=== PATIENT | male | born 1955 | race Caucasian/White ===

== ENCOUNTER 2024-11-27 06:45 | Observation (INO) ==
--- NOTE | 2024-11-12 12:59 | PAT Medication Instructions ---
Medication Instructions Date of Service November 12, 2024 Home Medications amlodipine 5 mg tablet 5 mg PO HS apixaban 5 mg tablet (Eliquis) 5 mg PO BID carvedilol 25 mg tablet 25 mg PO BID empagliflozin 10 mg tablet (Jardiance) 10 mg PO QAM lisinopril 40 mg tablet 40 mg PO QAM omeprazole 20 mg tablet,delayed release 20 mg PO QAM rosuvastatin 10 mg tablet 10 mg PO HS tadalafil 5 mg tablet 5 mg PO QAM trazodone 150 mg tablet 150 mg PO HS PRN zolpidem 10 mg tablet 10 mg PO HS PRN STOP 3 days before surgery empagliflozin 10 mg tablet (Jardiance) 10 mg PO QAM ASK your prescriber and surgeon apixaban 5 mg tablet (Eliquis) 5 mg PO BID(in order for spinal or epidural anesthesia, Eliquis needs to be stopped 72 hours/3 days before surgery. Please check if okay with doctor that prescribes this to you) DO NOT take the morning of surgery lisinopril 40 mg tablet 40 mg PO QAM Take morning of surgery With a small sip of water, OTHERWISE NOTHING TO EAT OR DRINK AFTER MIDNIGHT: carvedilol 25 mg tablet 25 mg PO BID omeprazole 20 mg tablet,delayed release 20 mg PO QAM tadalafil 5 mg tablet 5 mg PO QAM Take evening before surgery amlodipine 5 mg tablet 5 mg PO HS carvedilol 25 mg tablet 25 mg PO BID rosuvastatin 10 mg tablet 10 mg PO HS trazodone 150 mg tablet 150 mg PO HS PRN(if needed) zolpidem 10 mg tablet 10 mg PO HS PRN(if needed) Other Notes If you have any questions please call us at [phone] or [phone] or [phone] or [phone]
--- NOTE | 2024-11-17 09:05 | Anesthesiology Consultation ---
Date of Service November 17, 2024 Assessment & Plan (1) Encounter for pre-operative examination: Plan - PCP clearance 10/15/24, Dr. Bruce Ha, and [place] cardiology clearance 11/21/24. PAT testing to be faxed to PCP. - cardiology office visit 12/25/23: "...persistent atrial fibrillation...EPS with pulmonary venous antral isolation and left atrial ablation...01/11/22...apixaban...PVC...palpitations...have ordered a two-week Zio XT monitor for further evaluation..." Chart Review Chart Review: Pending: Refer to Additional Notes / Consult section and Patient seen in Pre Admission Testing Teaching & Discussion Pre-Anesthesia Teaching/Discussion Notes: Instructed NPO after midnight before surgery, except medications with 15 cc of water. Medication instructions provided according to the PAT guidelines. History Surgery Operation Date: 11/24/24 07:00 Proposed Procedures p Left Knee Arthroscopy, Medial Meniscus Root Repair(Left) - Ramon Park MD Operation Date: 11/27/24 08:50 Proposed Procedures p Left Total Knee Arthroplasty - Ramon Park MD Height/Weight Height: 6 ft 2 in Weight: 110.4 kg Allergies Allergy/AdvReac Type Severity Reaction Status Date / Time No Known Allergies Allergy Verified 11/12/24 07:31 Medications Home Medications Medication Instructions Recorded Confirmed Last Taken amlodipine 5 mg tablet 5 mg PO HS 11/12/24 11/12/24 Unknown apixaban 5 mg tablet (Eliquis) 5 mg PO BID 11/12/24 11/12/24 Unknown carvedilol 25 mg tablet 25 mg PO BID 11/12/24 11/12/24 Unknown empagliflozin 10 mg tablet 10 mg PO QAM 11/12/24 11/12/24 Unknown (Jardiance) lisinopril 40 mg tablet 40 mg PO QAM 11/12/24 11/12/24 Unknown omeprazole 20 mg tablet,delayed 20 mg PO QAM 11/12/24 11/12/24 Unknown release rosuvastatin 10 mg tablet 10 mg PO HS 11/12/24 11/12/24 Unknown tadalafil 5 mg tablet 5 mg PO QAM 11/12/24 11/12/24 Unknown trazodone 150 mg tablet 150 mg PO HS PRN Sleep 11/12/24 11/12/24 Unknown zolpidem 10 mg tablet 10 mg PO HS PRN Sleep 11/12/24 11/12/24 Unknown Additional Notes: Case discussed with Dr. Morales regarding tadalafil for BPH. He advised that if patient is comfortable holding tadalafil morning of surgery that is recommendation. I discussed this with patient and he expresses comfort with holding tadalafil morning of surgery. He confirmed that it is not taken for pulmonary hypertension. This was updated on provided medication instruction list, patient verbalized understanding and agreement-denied questions or concerns. Past Medical History Medical History (Updated 11/17/24 @ 12:04 by Claritza Rodriguez PA-C) Atrial fibrillation currently on eliquis; f/u PCP Diabetes mellitus NIDDM GERD (gastroesophageal reflux disease) controlled, stable per pt History of cardioversion 12/2021 and 01/2022, [facility] in [place], [place] Hyperlipidemia Hypertension controlled, stable per pt Patient denies h/o stroke, seizures, heart attack, heart failure, blood clots/DVTs or blood transfusions. Exercise / Class Metabolic Activity II 4-5 Yardwork/Stairs/Walk up hill (denies chest discomfort or shortness of breath with one flight of stairs) Past Surgical History Surgical History History of cardiac ablation for atrial fibrillation 02/2022, [facility] in [place], [place] History of esophagogastroduodenoscopy (EGD) Hx laparoscopic cholecystectomy 2022 Hx of bilateral cataract extraction 10/2021 Hx of cardiac cath ~2007, atypical chest pain, [facility], no stents Hx of colonoscopy 2021 Hx of shoulder surgery rt, 1998 Hx of spinal surgery L4-5, L5-S1 fusion 06/2017 Revision 01/2018 for discitis anterior posterior spinal fusion, L2-3, L3-4, revision L4-5, L5-S1, 02/2023 Hx of umbilical hernia repair 3 months old Past Anesthesia History No Family Hx of Anesthesia Complications and Other (required straight cath for post-op urinary retention after one of his lumbar surgeries) History of PONV No Hx of PONV and No Hx of Motion Sickness Social History Smoking Status: Former smoker Do You Dip or Chew Tobacco: No Smoking End Date: years ago Hx Alcohol Use: Yes alcohol intake frequency: a few times a week Hx Substance Use: No substance use type: does not use Review of Systems Patient denies chest pain, shortness of breath, dyspnea on exertion, snoring, witnessed apneas, fever, chills, cough, wheezing, or palpitations. Physical Exam Vital Signs Vitals BP 169/70 P 64 TEMP 98.3 SP02 96% on RA RESP 18 Physical Patient resting comfortably in chair in no acute distress, alert and oriented, responding appropriately throughout visit Full cervical extension range of motion without pain TMD 3.5 finger breadths Mallampati Score 3 Dentition: several caps/crowns and implants, denies chipped or loose teeth, or bridges Lungs: normal respiratory effort. Good air movement, clear throughout to auscultation, no adventitious breath sounds Cardiac: regular rate and rhythm, no murmurs noted Carotid arteries: negative bruit bilat Lab Results Anesthesia Preop Results Results Anesthesia Widget: WBC 3.68 K/ul (4.8-10.8) L 10/22/24 Hgb 14.1 g/dl (14.0-18.0) 10/22/24 Hct 42.2 % (42.0-52.0) 10/22/24 Plt 134 K/uL (130-400) 10/22/24 Na 138 mmol/L (136-145) 11/17/24 K 3.9 mmol/L (3.5-5.1) 11/17/24 Cl 106 mmol/L (98-107) 11/17/24 CO2 28 mmol/L (21-32) 11/17/24 BUN 18 mg/dl (6-23) 11/17/24 Creat 1.06 mg/dl (0.6-1.4) 11/17/24 Glucose Level 106 mg/dl (70-99(Fasting)) H 11/17/24 PT 11.4 Seconds (9.0-12.0) 11/17/24 PTT 33 Seconds (21-31) H 11/17/24 INR 1.1 (0.9-1.1) 11/17/24 TSH 1.393 uIu/ml (0.300-4.500) 10/22/24 HA1c 5.4 % (4.5-5.6) 10/22/24 Urine Color Yellow 11/17/24 Urine Appearance Clear (Clear) 11/17/24 Urine pH 5.5 (4.5-7.5) 11/17/24 Urine Specific [place] 1.042 (1.000-1.030) H 11/17/24 Urine Protein Trace (Negative) H 11/17/24 Urine Glucose (UA) 3+ (Negative) H 11/17/24 Urine Ketones Negative (Negative) 11/17/24 Urine Blood Negative (Negative) 11/17/24 Urine Nitrite Negative (Negative) 11/17/24 Urine Bilirubin Negative (Negative) 11/17/24 Urine Urobilinogen Negative (Negative) 11/17/24 Urine Leukocyte Esterase Negative (Negative) 11/17/24 Urine WBC (Auto) 0-5 /hpf (0-5) 11/17/24 Urine RBC (Auto) 0-2 /hpf (0-2) 11/17/24 Urine Hyaline Casts (Auto) 0-2 /lpf (0-2) 11/17/24 Urine Epithelial Cells (Auto) 0-2 /hpf (0-2) 11/17/24 Urine Bacteria (Auto) None Seen (None Seen) 11/17/24 Blood Type A Positive 11/17/24 Antibody Screen NEGATIVE 11/17/24 Testing Electrocardiogram Date: 12/25/23 Sinus rhythm, rate 64 bpm Other Testing Cardiac event monitor report 12/25/23 Min HR 47 bpm, max 190, avg 70 Predominant underlying rhythm was sinus rhythm 1 run of ventricular tachycardia occurred lasting 4 beats with a max rate of 190 bpm 11 supraventricular tachycardia runs occurred, run with the fastest interval lasting 7 beats with a max rate of 179 bpm, the longest lasting 11 beats with an avg rate of 105 bpm Some episodes of supraventricular tachycardia may be possible atrial tachycardia with variable block Rare isolated SVEs, SVE couplets, SVE triplets, VE couplets and VE triplets Occasional isolated VEs Ventricular bigeminy and trigeminy were present
[~2024-11-27 06:45] MED LIST: BUPIVACAINE 0.25% PF 30 ML VIAL ONE; BUPIVACAINE 0.5 % 5 MG/1 ML PF 10ML VIAL ONE
[2024-11-27] MEDS ORDERED: LIDOCAINE 2% 2 ML VIAL/AMP(20MG/ML) INFIL ONE (07:24)
[2024-11-27] MEDS ORDERED: PROPOFOL IV EMULSION 10 MG/ML 20 ML VIAL IV ONE (07:24)
[2024-11-27] MEDS ORDERED: ONDANSETRON INJ 2 MG/ML 2 ML VIAL ONE (07:24)
[2024-11-27] MEDS ORDERED: MIDAZOLAM HCL 1 MG/ML 2ML VIAL ONE (07:24)
[2024-11-27] MEDS: ACETAMINOPHEN 500 MG TAB PO SCH ×2 (07:31→14:02)
[2024-11-27] MEDS: traMADol HCL 50 MG TABLET PO SCH (07:32)
[2024-11-27] MEDS: CeleBREX 200 MG CAP PO SCH ×2 (07:32→21:27)
[2024-11-27] MEDS: FAMOTIDINE 20 MG TAB PO SCH (07:32)
[2024-11-27] MEDS: LR 15ML/HR IV SCH ×3 (07:33→13:15)
[2024-11-27] MEDS: Scopolamine 1 MG TDSY TD SCH (07:33)
[2024-11-27] MEDS: dexAMETHasone**PF** 10 MG/ML VIAL IV SCH (07:34)
[2024-11-27] MEDS ORDERED: PROMETHAZINE HCL 6.25 MG in SODIUM CHLORIDE 0.9% 50 ML IV PRN (08:08)
[2024-11-27] MEDS ORDERED: ePHEDrine sulfate 50 MG/ML AMP IV PRN (08:08)
[2024-11-27] MEDS ORDERED: ONDANSETRON INJ 2 MG/ML 2 ML VIAL IV PRN ×2 (08:08→11:19)
[2024-11-27] MEDS ORDERED: ATROPINE SULFATE 0.1 MG/ML 10ML SYR IV PRN (08:08)
[2024-11-27] MEDS ORDERED: fentaNYL citrate PF 100 MCG/2 ML VIAL ONE ×3 (08:23→10:16)
--- NOTE | 2024-11-27 08:30 | History & Physical Bridge Note ---
Date of Service November 27, 2024 History & Physical Bridge Note I have examined the patient, reviewed the History & Physical and in the interval since the performance of the History & Physical I have noted the following changes of clinical significance: no changes noted
[2024-11-27] MEDS: TRANEXAMIC ACID 1,000 MG **IV Pre-op IV SCH (08:48)
[2024-11-27] MEDS: ceFAZolin 2000MG 2,000 MG/15 ML SYR IV SCH ×3 (09:06→17:37)
[2024-11-27] MEDS ORDERED: KETAMINE HCL 10MG/ML SYR ONE (09:20)
[2024-11-27] MEDS: ROPIV 0.5% 246mg, Ketorolac 30mg, EPINEPHrine 0.5mg in NSS INFIL SCH (09:53)
[2024-11-27] MEDS: ORTHO JOINT ANESTHETIC ONE (09:53)
[2024-11-27] MEDS: TRANEXAMIC ACID 1,000 MG **IV Intra-op IV SCH (10:24)
[2024-11-27] MEDS ORDERED: HYDROmorphone INJ 2 MG/ML SYR/VIAL ONE (11:09)
--- NOTE | 2024-11-27 11:18 | Operative Report ---
Post Operative Report Pre & Post Diagnosis Operation Date: 11/27/24 08:50 Pre-Op Diagnosis: Left Knee Medial Meniscus Tear, Osteoarthritis Post-Op Diagnosis: Left Knee Medial Meniscus Tear, Osteoarthritis I identified the patient and participated in the time-out.: Yes Procedure Operation Date: 11/27/24 08:50 Actual Procedures p Left Total Knee Arthroplasty(Left) - Ramon Park MD Surgeon Ramon Park MD [facility] Nurse KONRAD Butts PA-C. No resident or fellow was available to assist. Estimated Blood Loss 50 Findings Consistent with Post-Op Diagnosis Specimens Left knee bone and soft tissue contents Anesthesia Type General Regional Complications none Disposition Disposition: Recovery Room Indications 69-year-old male with left knee pain refractory to conservative management. This includes activity modification, nonsteroidal anti-inflammatory medications, intra-articular corticosteroid injection, and others. Physical exam is notable for medial joint line tenderness and a positive Melita's test. X-rays were ob tained demonstrating osteoarthritis. MRI was obtained which demonstrated a medial meniscus root tear as well as the aforementioned osteoarthritis. I had a long discussion with him about his diagnoses and treatment options. He has a history of prior back surgery with balance issues, and so while we did talk about a medial meniscus root repair as an option he did not feel that he could maintain the postoperative weightbearing restrictions. Therefore, total knee arthroplasty was the best surgical option for him. After reviewing all the risks and benefits of surgery, alternatives, and expected outcomes he elected to proceed. All questions were answered. Informed consent was signed. Description of Procedure Patient was identified in the preoperative holding area where the surgical site, left knee, was marked. Adductor canal block was placed by anesthesia. Patient was brought back to the operating room, moved on the operating room table, and general anesthesia was administered. A bump was placed underneath the ipsilateral hip. All bony prominences were padded. Perioperative antibiotics and tranexamic acid were administered. Exam under anesthesia was performed. This demonstrated range of motion arc from 5 degrees to 125 degrees stable to varus and valgus stress testing at 30 degrees. The surgical site was prepped and draped in the normal sterile fashion. Prior to incision a multidisciplinary timeout was called. All in the room were in agreement. I began by exsanguinating the limb with an Esmarch bandage. Tourniquet was inflated to 250 mmHg. Total tourniquet time for the case was 60 minutes. A 14 cm long incision was made over the anterior aspect of the knee. I dissected through the subcutaneous tissues to the level of the fascia. Full-thickness flaps were raised above the fascia. A median parapatellar arthrotomy was made. The fat pad was excised. A medial release was performed with Bovie electrocaut evelyn on the proximal tibia. Synovitis in the suprapatellar pouch was removed also with electrocautery. The patella was then everted and held with 2 towel clips. The thickness of the patella was measured at 26 mm. Patellar resection was performed with a saw. Caliper showed the patella thickness now to be 15 mm. A size 41 mm oval trial was placed and had a great fit. The 3 drill holes were placed then the trial button was placed. The patellar thickness was now 26 mm which I was very happy with. The patellar trial was then removed, and the knee was flexed up. Retractors were placed to protect the MCL and LCL. The ACL and PCL were excised. Intramedullary drill guide was drilled into the femur. Distal femoral cutting guide was placed set at 5 degrees of valgus to resect 10 mm off the distal femur. Distal femoral resection was made without difficulty. The tibia was then exposed. The lateral meniscus was sharply excised. The tibial cutting jig was positioned in line with the tibial shaft in the coronal plane and with 3 degrees of posterior slope in the sagittal plane to resect 9 mm off the medial compartment. The jig was then pinned in position and the tibial cut was made. We then brought the knee into full extension. Lamina spreaders were placed. The medial meniscus was excised. The extension block was then placed for 6 mm thickness poly. This gave us full extension and excellent stability to varus and valgus stress. Next the extension block was removed, the knee was flexed up, collateral ligaments were protected, and the epicondylar axis and Whitesides line were marked out on the distal femoral cut. Femoral sizing guide was placed. External rotation was set at 3 degrees so that the posterior cut would be parallel with the epicondylar axis and perpendicular with Whitesides line. The patient sized to a size 7 femur. 2 pins were then placed through the jig into the distal femur. The jig was removed and the appropriately sized 4-in-1 cutting jig was placed over the pins, then fixated to the bone using threaded, headed pins. We confirmed that we would not notch the femur with our anterior cut. Our 4 cuts were then made. The cutting jig was removed. The 6 mm flexion block was then placed with the knee held at 90 degrees. There was excellent stability to varus and valgus at 90 degrees with no gapping medially or laterally. Next the box cutting jig was placed on the distal femur. The box cut was made and the femoral trial was impacted into position and sat down flush nicely on the bone. Lug holes were drilled in the distal femur. We then reexposed the tibia. The tibia was sized to an 8 for a fixed bearing component and pinned in external rotation on the cut tibial surface. The intramedullary drill followed by the keel punch were used to prepare the tibia. The tibial tray with a 6 mm thickness polyethylene liner was placed and the knee was brought through a full range of motion. There was excellent stability to varus valgus stress throughout a full range of motion, which was approximately 0-135 degrees. Next the trial components were removed. I then injected the posterior capsule and periosteum with the periarticular injection cocktail. The bone cuts were then irrigated and dried while the cement was mixed on the back table. The femoral component was cemented on first. Excess cement was removed. A lap sp onge was placed over the femoral component for protection, then the tibia was subluxated anteriorly. The all polyethylene tibial component was then cemented in place. Again excess cement was removed. The knee was brought into full extension and held there until the cement cured. The patella was cemented and clamped. Dilute Betadine solution was then allowed to soak in the knee while the cement cured. Once the cement was fully cured, the knee was irrigated out, the tourniquet was let down and meticulous hemostasis was ensured. The knee was brought through a full range of motion. I was were very happy with the patella tracking and the stability. We then began to close. Interrupted 0 Vicryl suture was used to repair the patellar retinaculum in [id number] fashion. The quadriceps and patellar tendons were run with #1 Vicryl. The deep dermal layer was closed with interrupted 2-0 Vicryl. Dermabond and Zipline was used for the skin, followed by a Silverlon dressing. A compressive Jose wrap was placed and the knee was placed into a knee immobilizer. Patient's sedation was lifted and was transferred to recovery room in stable condition. Summary of implants: Depuy Attune Posterior Stabilized Cemented Femur, size 7 left Attune All-polyethylene tibial component, posterior stabilized 6 mm thickness, size 8 Attune patella medialized dome, size 41 2 batches of Palacos high viscosity bone cement Postoperative course: Patient will be admitted to the floor for pain control and monitoring. Weightbearing as tolerated with a walker with no knee range of motion for 48 hours. Resume Eliquis tomorrow for DVT prophylaxis. I attest to the content of the Intraoperative Record and any orders documented therein. Any exceptions are noted below.
[2024-11-27] MEDS ORDERED: MAGNESIUM HYDROXIDE SUSP 30 ML UDC PO PRN (11:19)
[2024-11-27] MEDS ORDERED: oxyCODONE HCL IR 5 MG TAB (IMMEDIATE RELEASE) PO PRN (11:19)
[2024-11-27] MEDS ORDERED: METOCLOPRAMIDE HCL INJ 5 MG/ML 2 ML VIAL IV PRN (11:19)
[2024-11-27] MEDS ORDERED: diphenhydrAMINE 50 MG/ML VIAL IV PRN (11:19)
[2024-11-27] MEDS ORDERED: HYDROmorphone INJ 1 MG/ML SYRINGE IV PRN (11:19)
[2024-11-27] MEDS ORDERED: ALUMINUM/MAGNESIUM SUSP 30 ML UDC PO PRN (11:19)
[2024-11-27] MEDS ORDERED: bisacodyL 10 MG SUPP PR PRN (11:19)
[2024-11-27] MEDS ORDERED: NALOXONE HCL 0.4 MG/1 ML VIAL/CARP IV PRN (11:19)
--- NOTE | 2024-11-27 11:19 | Operative Report ---
Post Operative Report Pre & Post Diagnosis Operation Date: 11/27/24 08:50 Pre-Op Diagnosis: Left Knee Medial Meniscus Tear Post-Op Diagnosis: Left Knee Medial Meniscus Tear I identified the patient and participated in the time-out.: Yes Procedure Operation Date: 11/27/24 08:50 Actual Procedures p Left Total Knee Arthroplasty(Left) - Ramon Park MD Surgeon Ramon Park MD Mortgage Clerk Jabier Butts PARex Estimated Blood Loss 50 Findings Consistent with Post-Op Diagnosis Specimens left knee bone and soft tissue Description of Procedure I was present during the entire case assisting with positioning, prepping, draping, wound retraction, wound closure, dressing and immobilizer placement. No fellow present. Please see Dr. Park procedure note for specifics of the case. I attest to the content of the Intraoperative Record and any orders documented therein. Any exceptions are noted below.
[2024-11-27] MEDS ORDERED: traZODone HCL 50 MG TAB PO PRN (11:22)
[2024-11-27] MEDS ORDERED: ZOLPIDEM TARTRATE 5 MG TAB PO PRN (11:26)
[2024-11-27] MEDS: fentaNYL citrate PF 100 MCG/2 ML VIAL IV PRN (11:32)
--- NOTE | 2024-11-27 11:44 | XRay Report ---
XR knee LT 1 or 2V routine CLINICAL HISTORY: Surgical Post Op COMPARISON: None pertinent FINDINGS: 2 postoperative views of the left knee demonstrate findings of a total knee replacement wi th satisfactory positioning and alignment of the prosthetic components. Postoperative changes are not ed in the soft tissues. IMPRESSION: As above ACT 112: Negative or not required by law. Electronically signed by: Jazmine Young M.D. 11/27/2024 11:43 AM
[2024-11-27] MEDS: HYDROmorphone INJ 2 MG/ML SYR/VIAL ONE (12:03)
[2024-11-27] MEDS ORDERED: HYDROmorphone INJ 0.5 MG/0.5 ML SYR IV PRN (12:05)
[2024-11-27] MEDS: KETOROLAC TROMETHAMINE 15 MG/ML VIAL IV SCH (12:37)
[2024-11-27] MEDS: LR 60ML/HR IV SCH (13:15)
[2024-11-27] MEDS: KETOROLAC 30 MG/ML VIAL ONE (13:17)
--- NOTE | 2024-11-27 13:57 | Anesthesiology Progress Note ---
Date of Service November 27, 2024 Anesthesia Post Procedure Vital Signs Vital Signs: Temp Pulse Pulse Resp BP BP Pulse Ox 11/27/24 13:27 36.5 C 74 17 159/86 H 96 11/27/24 13:00 36.5 C 71 16 142/78 H 99 11/27/24 12:40 65 12 135/80 98 11/27/24 12:30 70 18 142/78 H 97 11/27/24 12:20 36.6 C 74 12 141/82 H 98 11/27/24 12:10 68 12 133/88 96 11/27/24 12:00 68 14 147/87 H 97 11/27/24 11:50 65 16 150/77 H 97 11/27/24 11:40 63 12 151/84 H 94 11/27/24 11:30 70 14 161/87 H 98 11/27/24 11:18 36.1 C L 68 12 165/97 H 98 11/27/24 07:10 36.8 C 67 20 153/91 H 97 O2 Del Method O2 Flow Rate 11/27/24 13:27 Nasal Cannula 2 11/27/24 13:00 Nasal Cannula 2 11/27/24 12:40 Nasal Cannula 2 11/27/24 12:30 Nasal Cannula 2 11/27/24 12:20 Nasal Cannula 2 11/27/24 12:10 Nasal Cannula 2 11/27/24 12:00 Nasal Cannula 2 11/27/24 11:50 Nasal Cannula 2 11/27/24 11:40 Oxymask 3 11/27/24 11:30 Oxymask 3 11/27/24 11:18 Oxymask 6 11/27/24 07:10 Room Air Pain Intensity Left Knee: Pain Intensity: 6 Transfer of Care Handoff Completed per policy Notes Mental Status: alert / awake / arousable and participated in evaluation Patient Amnestic to Procedure: Yes Nausea / Vomiting: adequately controlled Pain: adequately controlled Airway Patency, RR, SpO2: stable & adequate BP & HR: stable & adequate Hydration State: stable & adequate Anesthetic Complications: no major complications apparent and Pt Satisfied with anesthetic care
[2024-11-27] MEDS: HYDROCODONE/ACETAMOPHEN 5/325MG TAB PO PRN (14:03)
[2024-11-27] MEDS: Scopolamine CHECK PATCH PLACEMENT SCH (16:19)
[2024-11-27] MEDS: DOCUSATE SODIUM 100 MG CAP PO SCH (21:26)
[2024-11-27] MEDS: traMADol HCL 50 MG TABLET PO PRN (21:26)
[2024-11-27] MEDS: SENNA 8.6 MG TAB PO SCH (21:26)
[2024-11-27] MEDS: amLODIPine BESYLATE 5 MG TAB PO SCH (21:27)
[2024-11-27] MEDS: ROSUVASTATIN CALCIUM 10 MG TAB PO SCH (21:27)
[2024-11-27] MEDS: carvediloL 25 MG TAB PO SCH (21:27)
[2024-11-28] MEDS: TAMSULOSIN HCL 0.4 MG CAP PO PRN (06:05)
[2024-11-28 07:10] VITALS: O2SAT 97
[2024-11-28 07:53] VITALS: BP 122/70; PULSE 65; RESP 14; TEMP 97.7
[2024-11-28 08:39] LABS: Hematocrit (blood only) 32.7 % (42.0-52.0); Hemoglobin 11.4 g/dl (14.0-18.0); Mean Corpuscular Hgb Conc 34.9 g/dL (32.0-36.0); Mean Corpuscular Volume 88.9 fL (80.0-100.0); Mean Platelet Volume 9.3 fL (9.4-12.4); Platelet Count 135 K/uL (130-400); RDW Coefficient of Variation 12.7 % (11.5-14.5); RDW Standard Deviation 41.2 fL (36.4-46.3); Red Blood Count 3.68 M/uL (4.70-6.10); White Blood Count 8.12 K/ul (4.8-10.8)
[2024-11-28 08:54] LABS: BUN Creatinine Ratio 21.9 (10-20); Calcium 8.6 mg/dl (8.6-10.3); Creatinine Clr Calc Pharmacy 72.1 ml/min; Potassium 3.7 mmol/L (3.5-5.1)
[2024-11-28] MEDS ORDERED: EMPAGLIFLOZIN 10 MG TAB PO SCH (09:00)
[2024-11-28] MEDS: dexAMETHasone 4 MG TAB PO SCH (09:09)
[2024-11-28] MEDS: APIXABAN 5 MG TABLET PO SCH (09:09)
[2024-11-28] MEDS: lisinopril 40 MG TAB PO SCH (09:10)
[2024-11-28] MEDS: MULTIVITAMIN TAB PO SCH (09:10)
[2024-11-28] MEDS: PANTOprazole 40 MG TAB PO SCH (09:10)
--- NOTE | 2024-11-28 10:22 | Orthopedic Progress Note ---
Date of Service November 28, 2024 Assessment & Plan (1) S/P total knee arthroplasty: Plan: PT/OT Weightbearing as tolerated with walker assistance Immobilizer use for first 48 hours postop Ice with easy wrap Pain controlled p.o. meds DVT prophylaxis with SAHARA stockings and Eliquis Plan is to discharge home today with in-home physical therapy for first 2 weeks postop Keep Silverlon dressing in place Follow-up at [facility] [address] orthopedics as previously scheduled With questions contact our clinic at [phone] Admission and Anticipated Discharge Date Admission Date: November 27, 2024 Subjective This 69-year-old male is day 1 status post left total knee arthroplasty. States he is doing fairly well. He states his pain is well-controlled with oral hydrocodone. He is very anxious to be discharged home today. He states that he is scheduled to do in-home physical therapy for the first 2 weeks postoperatively. Currently he denies chest pain, shortness of breath, fever, chills, sweats, nausea, vomiting, diarrhea or difficulty voiding. He has no complaint of numbness or tingling in his left lower extremity. Review of Systems Review of Systems: All systems reviewed & are unremarkable except as noted in Subjective Physical Exam Physical Exam: Left lower extremity: Silverlon is clean dry and intact and left in place. Patient is able to extend knee to terminal extension and flex to 70 degrees without significant discomfort. He is able to actively dorsi and plantarflex foot and perform an active straight leg raise test. His quad strength is 4+ out of 5. He is neurovascularly intact in the left lower extremity. Results & Data Vital Signs (Past 12 Hours) Vital Signs Temp Pulse Pulse Resp BP Pulse Ox O2 Del Method 11/28/24 07:51 36.5 C 65 14 122/70 97 Room Air 11/28/24 07:07 36.7 C 68 16 123/74 97 Room Air 11/28/24 03:21 36.6 C 77 12 124/75 95 Room Air Diagnostic Findings Laboratory Results WBC 8.12 K/ul (4.8-10.8) 11/28/24 08:10 RBC 3.68 M/uL (4.70-6.10) L 11/28/24 08:10 Hgb 11.4 g/dl (14.0-18.0) L 11/28/24 08:10 Hct 32.7 % (42.0-52.0) L 11/28/24 08:10 MCV 88.9 fL (80.0-100.0) 11/28/24 08:10 MCH 31.0 pg (25.0-34.0) 11/28/24 08:10 MCHC 34.9 g/dL (32.0-36.0) 11/28/24 08:10 RDW Std Deviation 41.2 fL (36.4-46.3) 11/28/24 08:10 RDW Coeff of Anaid 12.7 % (11.5-14.5) 11/28/24 08:10 Plt Count 135 K/uL (130-400) 11/28/24 08:10 MPV 9.3 fL (9.4-12.4) L 11/28/24 08:10 Sodium 134 mmol/L (136-145) L 11/28/24 08:10 Potassium 3.7 mmol/L (3.5-5.1) 11/28/24 08:10 Chloride 102 mmol/L (98-107) 11/28/24 08:10 Carbon Dioxide 26 mmol/L (21-32) 11/28/24 08:10 Anion Gap 6 (3-11) 11/28/24 08:10 BUN 28 mg/dl (6-23) H 11/28/24 08:10 Creatinine 1.28 mg/dl (0.6-1.4) 11/28/24 08:10 Est Cr Clr Drug Dosing 72.1 ml/min 11/28/24 08:10 eGFR 60.96 11/28/24 08:10 BUN/Creatinine Ratio 21.9 (10-20) H 11/28/24 08:10 Glucose 130 mg/dl (70-99(Fasting)) H 11/28/24 08:10 POC Glucose 168 mg/dl (70-99) H 11/27/24 20:28 Calcium 8.6 mg/dl (8.6-10.3) 11/28/24 08:10 Impressions Knee X-Ray 11/27/24 11:19 XR knee LT 1 or 2V routine CLINICAL HISTORY: Surgical Post Op COMPARISON: None pertinent FINDINGS: 2 postoperative views of the left knee demonstrate findings of a total knee replacement with satisfactory positioning and alignment of the prosthetic components. Postoperative changes are noted in the soft tissues. IMPRESSION: As above ACT 112: Negative or not required by law. Electronically signed by: Jazmine Young M.D. 11/27/2024 11:43 AM
--- NOTE | 2024-11-28 11:04 | Discharge Summary ---
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 He is scheduled for a left total knee arthroplasty with Dr. Park on 11/27/2024 at [facility]. The patient suffered an acute injury to the left knee about 4 months ago ended up receiving a steroid injection which was not therapeutic. An MRI was obtained demonstrating a root tear of the medial meniscus, bone marrow edema, and moderate chondromalacia. He was initially scheduled for arthroscopic surgery to repair the tear however had reservations about being nonweightbearing for a prolonged period of time secondary to balance problems and weakness in his legs from prior back surgeries. He and Dr. Park reviewed the option for total knee replacement and the patient has decided to proceed with this procedure. Patient reports ongoing pain in the left knee depending on his activity level. Intermittently develops swelling in the knee based on activity. He is taking 600 mg ibuprofen nightly to help him sleep. He saw his primary care provider recently back when he was considering all surgeries who cleared him for a surgical procedure and he is in the process of having the PCP clearance form related to our office. Patient met with preadmissions testing/anesthesia this morning and they reviewed medications to take and hold in the perioperative timeline. He has an appointment scheduled with cardiology on 11/21/2024 for cardiac clearance. He has a shower chair and a raised toilet seat at home. He also has a walker but is unsure if this is a rolling walker. Patient does not have any allergies. He has taken oxycodone and hydrocodone in the past following back surgeries and did much better with Hidalgo as opposed to oxycodone due to GI upset. He is a former smoker. Quit 12 years ago. He does not have any dental appointments scheduled in the near future. Denies any recent illnesses, cough, cold, fever, chills, chest pain, shortness of breath, abdominal pain, nausea, vomiting, diarrhea, urinary symptoms, dental pain, rash or redness to the knee, history of MRSA, allergy to metal, or history of DVT or PE. History of cardiac ablation and 2 lumbar fusion surgeries. Admission Exam Per Admitting Provider Physical Exam Vitals & Measurements BP: 150/100 SpO2: 97% CONSTITUTIONAL: well developed, well nourished. resting comfortably in no distress. pleasant. EARS: tm's without erythema or bulging. canals without erythema or edema. EYES: PERRL. conjunctiva normal MOUTH: oropharynx clear. dentition in good repair. no evidence of dental infection CARDIOVASCULAR: regular rate and rhythm. no murmurs, rubs, or gallops RESPIRATORY: no tachypnea. lungs clear to auscultation bilaterally MUSCULOSKELETAL: Left knee: ROM: 3 to 100 3+ effusion - Lateral joint line tenderness + Medial joint line tenderness Mild lateral facet tenderness Moderate medial facet tenderness NEUROLOGIC: no focal deficits Principal Diagnosis Left knee osteoarthritis Discharge Exam Left lower extremity: Silverlon is clean dry and intact and left in place. Patient is able to extend knee to terminal extension and flex to 70 degrees without significant discomfort. He is able to actively dorsi and plantarflex foot and perform an active straight leg raise test. His quad strength is 4+ out of 5. He is neurovascularly intact in the left lower extremity. Discharge Data Allergies Allergy/AdvReac Type Severity Reaction Status Date / Time No Known Allergies Allergy Verified 11/27/24 07:07 Procedures Performed Operation Date: 11/27/24 08:50 Actual Procedures p Left Total Knee Arthroplasty(Left) - Ramon Park MD Ordered Studies 11/27/24 10:33 US - OR guided needle placemen Routine Hospital Course (1) S/P total knee arthroplasty: Patient had an uneventful overnight stay following a left total knee arthroplasty. States that his pain was effectively controlled with hydrocodone. He states he is scheduled to begin in home physical therapy later this weekend. He is very pleased with the results of his surgery. He is on Eliquis for DVT prophylaxis. PT/OT Weightbearing as tolerated with walker assistance Immobilizer use for first 48 hours postop Ice with easy wrap Pain controlled p.o. meds DVT prophylaxis with SAHARA stockings and Eliquis Plan is to discharge home today with in-home physical therapy for first 2 weeks postop Keep Silverlon dressing in place Follow-up at [facility] as previously scheduled With questions contact our clinic at [phone] Total Time Total Time Spent Total Time Spent (In Minutes): 25 mins Discharge Plan Discharge Items Patient Disposition: Home - Home Health Services Reason For Visit: Left Knee Medial Meniscus Tear Discharge Diagnosis: Left total knee arthroplasty Activity: As commented below Lifting: None Bathing: Keep incision dry Bathing Comment: may shower later today Sexual Activity: Wait until after follow-up appointment Exercise/Sports: Wait until after follow-up appointment Driving/Machine Use: No driving until cleared by engineering specialist technician Weightbearing: Left weightbearing Weightbearing Comment: as tolerated with walker Non-emergency contact: Surgeon Call non-emergency contact if: you have any medication questions, your pain is not controlled, your temperature is above 101.5, your wound has increased drainage and your wound pain has increased Follow-up/Referrals: Bruce Ha DO [Primary Care Provider] - Diet: Regular Addtl Attending Provider Instructions: Post-operative Instructions Dear Patient and Family/Friends, Before you are discharged from the hospital, it is important to know what to expect when you get home after surgery. To that end, we have created this sheet of discharge instructions which covers many commonly asked questions. Make sure you go through this sheet in its entirety with your nurse before you are discharged. Please note that we will go over the specifics of your surgery and recovery when you return for your first post-operative visit. Sincerely, Dr. Park Medications 1. Hidalgo 5/325 mg: Take 1-2 tabs every 4-6 hours as needed for postoperative pain control. A prescription for this medication will be sent to your pharmacy. 2. Diclofenac sodium 75 mg: Take 1 tab twice daily for postoperative pain and inflammation relief. You received this medication at your preoperative visit 3. Eliquis 5 mg: Take your normal regimen for DVT prophylaxis beginning postoperative day 1 Pain Expect to be in a fair amount of pain after surgery. Remember, our goal is not to eliminate your pain, but to make it tolerable. It is a good idea to stay ahead of your pain by taking the medications you were prescribed once you get home. Typically, the pain starts improving 3-7 days after surgery. You should start weaning off the narcotic pain medication (oxycodone, hydrocodone, hydromorphone, morphine) as soon as your pain improves. Please call our office if your pain is not adequately controlled. Ice Ice your operative site at least 5 times a day for 15-30 minutes at a time. Make sure you have a thin cloth between the ice or cooling unit and your skin to prevent greenberg bite. This is especially important if you received a nerve block. Continue icing your operative site for the first 5-7 days after surgery, then as needed. Diet/Nausea/Vomiting Start by drinking clear liquids and eating crackers. If you can tolerate this, then you may resume your normal diet. If you feel nauseated or vomit, take Zofran/ondansetron (if prescribed). Please call our office if you have intractable nausea or vomiting, or, if after hours, you may go to the Emergency Room for help. Constipation Constipation is a common side effect of narcotic pain medication. If you have not had a bowel movement within 2 days after surgery, we recommend purchasing an over the counter laxative such as Milk of Magnesia, Dulcolax, or Miralax from a local pharmacy, and taking it as instructed. Call our clinic if any questions. Slings and Braces If you were placed in a sling or brace, it must be worn at all times, including sleep. You may remove your sling or brace for physical therapy, home exercises, and showering. The length of time you will be in your brace and range of motion restrictions depends on what surgery you had; these details will be reviewed at your first post-operative appointment. Nerve block The anesthesia team sometimes places a nerve block to help with post-operative pain control. This results in significant numbness and inability to move the extremity. The nerve block usually wears off in 8-12 hours, but sometimes can last up to 24 hours. Please call our office if you are still unable to move your extremity after 24 hours, unless you received a pain pump to take home. Nerve blocks typically wear off quickly, so start taking pain medication as soon as you start feeling soreness near your surgical site. Weight bearing and Range of Motion. Do not bear any weight through your operative extremity immediately after surgery. If you had upper extremity surgery, do not lift anything with that arm. If you are in a knee brace, keep it locked in place until your follow-up. We will discuss your weight bearing, range of motion, and lifting restrictions in detail at your first post-operative appointment. Continuous Passive Motion (CPM) Machine If you were prescribed a CPM machine, it will start after your first post- operative appointment, at which time we will give you instructions on the range of motion settings and duration of treatment Physical therapy You will be given a prescription for physical therapy or occupational therapy at your first post-operative appointment. Typically, patients start therapy within 1 week of surgery Wound care and showering We will inspect your wound at your first post-operative visit, and may do a dressing change at that time. Most patients will be in a water-proof dressing that is removed 14 days after surgery. It is normal to see some dried blood on the dressing. Do not remove your dressing, paper strips or sutures yourself unless you are given permission. Showering is allowed the day after surgery. Do not scrub or remove any dressings. The wound should not be submerged underwater (i.e. in a bathtub or pool) until 4 weeks after surgery SAHARA stockings If you were given white stockings, these are to be worn at all times except to shower (on both legs) for the first 2 weeks after surgery. Driving You may not drive while taking narcotic pain medication or while in a cast, splint, sling or brace. You, the patient, need to make the final determination about when you are safe to drive, however, the earliest you may consider driving after surgery is below: Hand/Wrist/Elbow Surgery: 3 days Shoulder Surgery: 2 weeks Hip,/Knee/Ankle Surgery: 4 weeks Fracture repair: 6 weeks Return to Work Your return to work depends on what surgery was done and what type of work you do. Please bring any paperwork your employer needs completed to your first post-operative visit. Also, bring a description of your job duties, as this helps us to understand what risks you may face at work. Travel Avoid long distance travel (greater than 1 hour) in airplanes and cars for the first 6 weeks after surgery. If you must travel, you need to have a Doppler ultrasound done before you travel to rule out a blood clot in your legs. Follow-up You should have a follow-up appointment already scheduled 1-2 days after surgery. If not, please contact our office to make this appointment before you leave the hospital. When to call the office It is normal to have swelling and bruising in the limb that was operated on. This will improve with time. It is also normal to have fevers for the first 2 days after surgery. Reasons you should call your doctor include: Uncontrolled pain; Nausea, vomiting, or constipation that does not improve with medication; Fevers over 101.5, chills, sweats; Drainage or bleeding from the wound; Foul odor; Spreading areas of redness; Any other concerns. Contact Information Please call Dr. Park's office at [phone] with any concerns. Pending Studies at Discharge: No Stand-Alone Forms: My [facility] Medications and DC Order Prescriptions: New hydrocodone-acetaminophen 5-325 mg Tablet 1 tab PO Q4 MDD Ongoing Tx; Max 6 /day PRN (Reason: Post op pain control) Qty: 28 0RF Continued carvedilol 25 mg Tablet 25 mg PO BID Rx Instructions: must administer with a meal/food amlodipine 5 mg Tablet 5 mg PO HS trazodone 150 mg Tablet 150 mg PO HS PRN (Reason: Sleep) zolpidem 10 mg Tablet 10 mg PO HS PRN (Reason: Sleep) lisinopril 40 mg Tablet 40 mg PO QAM rosuvastatin 10 mg Tablet 10 mg PO HS tadalafil 5 mg Tablet 5 mg PO QAM omeprazole 20 mg Tablet,Delayed Release (Dr/Ec) 20 mg PO QAM Eliquis 5 mg Tablet 5 mg PO BID Jardiance 10 mg Tablet 10 mg PO QAM Admission Data Admit Date/Time: 11/27/24 11:19 Attending Provider: Ramon Park Admit Provider: Ramon Park Primary Care Provider: Bruce Ha Other Providers: [facility]; [facility]
== END 2024-11-28 11:48 | disposition home health service (06) ==
LOC: ASU 06:45 → 3E 06:45